=== PATIENT | female | born 1975 | race Hispanic/Latino ===

== ENCOUNTER 2021-11-27 20:19 | Emergency (ER) | payer OTHER ==
[~2021-11-27] VITALS: Ht 160 cm; Wt 83.9 kg
[2021-11-27 20:22] VITALS: BP 136/66
[2021-11-27] MEDS ORDERED: KETOROLAC 30MG VIAL (30MG/ML) IM ONE (21:00)
[2021-11-27] MEDS ORDERED: CYCL5TAB PO (22:04)
[2021-11-27] MEDS ORDERED: IBUP-2070 PO (22:04)
== END 2021-11-27 22:14 | disposition home or self-care (01) ==
LOC: EDH 20:19
DX: M54.50 Low back pain, unspecified (principal); M54.6 Pain in thoracic spine; V49.49XA Driver injured in collision with other motor vehicles in traffic accident, initial encounter; Y93.89 Activity, other specified; Y92.89 Other specified places as the place of occurrence of the external cause; Y99.8 Other external cause status
CPT/HCPCS: 72072; 72131; 81025; 96372; 99285; J1885